=== PATIENT | female | born 1970 | race Caucasian/White ===

== ENCOUNTER → 2017-06-29 | Outpatient (CLI) | payer BC ==
[~2017-06-29] MED LIST: JANUVIA100 MG PO; MIRENA52 MG IY; MOTRIN800 MG PO; PRILOSEC40 MG PO; PROBIOTIC1 EAC3 PO; ROBITUSSIN AC,T10 ML PO; TESSALON PERLE100 MG PO
== END | disposition home or self-care (01) ==
LOC: NUC 06-13 08:30
DX: R10.13 Epigastric pain (principal)
CPT/HCPCS: 78264; A9541

== ENCOUNTER → 2017-11-05 | Outpatient (CLI) | payer BC | END | disposition home or self-care (01) | LOC: CDC 13:24 | DX: Z01.810 Encounter for preprocedural cardiovascular examination (principal); E66.01 Morbid (severe) obesity due to excess calories | CPT/HCPCS: 93000 ==

== ENCOUNTER 2017-12-16 20:52 | Inpatient (IN) | payer BC ==
[~2017-12-16] VITALS: Ht 157.5 cm; Wt 108.0 kg
[~2017-12-16 20:52] MED LIST changes: +CLARITIN10 MG PO; +FLONASE16 G1 BOTH NARES; +JANUMET XR 50-1 EAC1 PO; +LIPITOR20 MG PO; +MULTIVITAMIN1 EAC2 PO
[2017-12-17 12:49] VITALS: BP 151/90
[2017-12-17 22:18] VITALS: BP 148/85
[2017-12-18 00:03] VITALS: BP 145/81
[2017-12-18 04:33] VITALS: BP 136/78
[2017-12-18 06:23] LABS: HEMATOCRIT 40.1 % (36.0-46.0); HEMOGLOBIN 12.6 G/DL (11.9-15.5); MCH 28.1 PG (29.0-34.0); MCHC 31.4 G/DL (30.0-36.0); MCV 89.5 FL (83-99); PLATELET COUNT 278 K/uL (156-360); RBC DIS.WIDTH-CV 14.6 % (11.8-14.6); RBC DIS.WIDTH-SD 47.5 % (39-53); RED BLOOD COUNT 4.48 M/uL (3.80-5.20)
[2017-12-18 06:55] LABS: CHLORIDE 102 MEQ/L (99-109); CREATININE 0.7 MG/DL (0.6-1.3); GFR ESTIMATE (CALCULATED) > 59 mL/min/; GLUCOSE 118 mg/dL (70-99); POTASSIUM 4.4 MEQ/L (3.7-5.4); SODIUM 137 MEQ/L (136-147); UREA NITROGEN (BUN) 6 mg/dL (9-23)
[2017-12-18 07:20] VITALS: BP 159/84
[2017-12-18 12:14] VITALS: BP 156/80
[2017-12-18 16:45] VITALS: BP 139/80
[2017-12-18 20:28] VITALS: BP 173/79
[2017-12-19 00:10] VITALS: BP 175/82
[2017-12-19 03:59] VITALS: BP 148/74
[2017-12-19 06:48] LABS: HEMATOCRIT 39.2 % (36.0-46.0); HEMOGLOBIN 12.2 G/DL (11.9-15.5); MCH 27.4 PG (29.0-34.0); MCHC 31.1 G/DL (30.0-36.0); MCV 88.1 FL (83-99); PLATELET COUNT 268 K/uL (156-360); RBC DIS.WIDTH-CV 14.7 % (11.8-14.6); RBC DIS.WIDTH-SD 47.6 % (39-53); RED BLOOD COUNT 4.45 M/uL (3.80-5.20); WHITE BLOOD COUNT 12.2 K/uL (4.1-10.2)
[2017-12-19 07:27] VITALS: BP 185/90
[2017-12-19 07:41] LABS: CHLORIDE 104 MEQ/L (99-109); CREATININE 0.5 MG/DL (0.6-1.3); GFR ESTIMATE (CALCULATED) > 59 mL/min/; GLUCOSE 134 mg/dL (70-99); POTASSIUM 4.3 MEQ/L (3.7-5.4); SODIUM 140 MEQ/L (136-147); UREA NITROGEN (BUN) 5 mg/dL (9-23)
[2017-12-19 12:06] VITALS: BP 172/87
[2017-12-19 15:34] VITALS: BP 130/75
[2017-12-19 19:35] VITALS: BP 128/63
[2017-12-20 00:42] VITALS: BP 141/61
[2017-12-20 04:03] VITALS: BP 143/79
[2017-12-20 07:23] LABS: HEMATOCRIT 36.2 % (36.0-46.0); HEMOGLOBIN 11.5 G/DL (11.9-15.5); MCH 28.4 PG (29.0-34.0); MCHC 31.8 G/DL (30.0-36.0); MCV 89.4 FL (83-99); PLATELET COUNT 215 K/uL (156-360); RBC DIS.WIDTH-CV 14.7 % (11.8-14.6); RED BLOOD COUNT 4.05 M/uL (3.80-5.20); WHITE BLOOD COUNT 10.3 K/uL (4.1-10.2)
[2017-12-20 07:35] VITALS: BP 168/87
[2017-12-20 07:43] LABS: CHLORIDE 105 MEQ/L (99-109); CREATININE 0.5 MG/DL (0.6-1.3); GFR ESTIMATE (CALCULATED) > 59 mL/min/; GLUCOSE 102 mg/dL (70-99); POTASSIUM 4.3 MEQ/L (3.7-5.4); SODIUM 137 MEQ/L (136-147); UREA NITROGEN (BUN) 7 mg/dL (9-23)
[2017-12-20 11:16] VITALS: BP 146/69
[2017-12-20 15:13] VITALS: BP 140/73
[2017-12-20] MEDS ORDERED: METOCLOPRAMIDE10 MG PO (16:34)
[2017-12-20] MEDS ORDERED: COLACE100 MG PO (16:34)
[2017-12-20] MEDS ORDERED: ZOFRAN ODT8 MG PO (16:34)
[2017-12-20] MEDS ORDERED: DILAUDID4 MG PO (16:34)
[2017-12-20] MEDS ORDERED: PRILOSEC20 MG PO (16:34)
== END 2017-12-20 17:47 | disposition home or self-care (01) | DRG 621 ==
LOC: ENRESERV 20:52 → 2SOUTH 12-17 11:50 → 2EASTP 12-17 11:50 → 2SOUTH 12-17 12:28 → ENRESERV 12-17 15:07 → 2EASTP 12-17 20:35
PROVIDERS: Surgery
PROC: 0DB64Z3 Excision of Stomach, Percutaneous Endoscopic Approach, Vertical (ICD-10-PCS; principal; 2017-12-17)
DX: E66.01 Morbid (severe) obesity due to excess calories (principal); Z68.41 Body mass index [BMI] 40.0-44.9, adult; E11.9 Type 2 diabetes mellitus without complications; Z83.3 Family history of diabetes mellitus; E78.5 Hyperlipidemia, unspecified; J45.909 Unspecified asthma, uncomplicated; K21.9 Gastro-esophageal reflux disease without esophagitis; G43.119 Migraine with aura, intractable, without status migrainosus; Z82.5 Family history of asthma and other chronic lower respiratory diseases; Z82.49 Family history of ischemic heart disease and other diseases of the circulatory system; Z90.49 Acquired absence of other specified parts of digestive tract; J01.00 Acute maxillary sinusitis, unspecified; H65.193 Other acute nonsuppurative otitis media, bilateral; Z79.84 Long term (current) use of oral hypoglycemic drugs
CPT/HCPCS: 71045; 80048; 82948; 85027; 86850; 86900; 86901; 88300; C9113; J0131; J0330; J1200; J1644; J1885; J2250; J2405; J2710; J2765; J3010; J3480; J7643; Q0175; S0074